=== PATIENT | female | born 1980 | race Caucasian/White ===

== ENCOUNTER 2018-11-22 05:54 | Day surgery (SDC) | payer OTHER ==
[~2018-11-22] VITALS: Ht 157.5 cm; Wt 66.2 kg
[2018-11-22 06:32] LABS: URINE PREG TEST NEGATIVE (NEGATIVE)
[2018-11-22] MEDS ORDERED: ceFAZolin SOD 1 GM in D5W MINI-BAG PLUS 50 ML IV ONE (07:00)
[2018-11-22] MEDS ORDERED: LIDOCAINE 1% MDV 20ML VIAL SQ PRN (07:00)
[2018-11-22] MEDS ORDERED: LR 1,000 ML IV SCH ×3 (07:00→10:00)
[2018-11-22] MEDS ORDERED: BUPIVACAINE/EPIN 0.25% 30 ML VIAL As Ordered ONE (07:13)
[2018-11-22] MEDS ORDERED: fentaNYL 250 MCG/5 ML INJECTION (J3010) As Ordered ONE (07:22)
[2018-11-22] MEDS ORDERED: MIDAZOLAM INJ 2 MG/2 ML VIAL (J2250) As Ordered ONE (07:23)
[2018-11-22] MEDS ORDERED: ROCURONIUM BROMIDE 50 MG/5 ML VIAL As Ordered ONE ×2 (07:30→08:57)
[2018-11-22] MEDS ORDERED: PROPOFOL 200 MG/20 ML VIAL As Ordered ONE (07:30)
[2018-11-22] MEDS ORDERED: LIDOCAINE 2% INJ 100 MG/5 ML SDV (FOR ANES.) As Ordered ONE (07:30)
[2018-11-22] MEDS ORDERED: dexameTHASONE 4 MG/ML 1ML VIAL (J1100) As Ordered ONE (07:48)
[2018-11-22] MEDS ORDERED: PHENYLephrine HCL 500 MCG/5 ML (100MCG/ML) SYRINGE (J2370) As Ordered ONE (07:48)
[2018-11-22] MEDS ORDERED: HYDROmorphone HCL 2 MG/ML 1ML VIAL (J1170) As Ordered ONE (08:09)
[2018-11-22] MEDS ORDERED: NEOSTIGMINE 10 MG/10 ML VIAL (J2710) As Ordered ONE (08:09)
[2018-11-22] MEDS ORDERED: GLYCOPYRROLATE INJ 0.2 MG/ML 2 ML VIAL As Ordered ONE (08:09)
[2018-11-22] MEDS ORDERED: ONDANSETRON 4MG/2ML VIAL (J2405) As Ordered ONE (08:26)
[2018-11-22] MEDS ORDERED: KETOROLAC 60 MG/2 ML VIAL (J1885) As Ordered ONE (08:27)
[2018-11-22] MEDS ORDERED: ePHEDrine SULFATE 25 MG/5 ML(5MG/ML) SYRINGE As Ordered ONE (08:43)
[2018-11-22] MEDS ORDERED: PERCOCET 5MG/325MG TAB PO PRN (10:00)
[2018-11-22] MEDS ORDERED: NORCO, ANEXSIA 5/325MG TABLET (HYDROcodone/ACETAMINOPHEN) PO PRN (10:00)
[2018-11-22] MEDS ORDERED: fentaNYL 100 MCG/2 ML INJECTION (J3010) IV PRN (10:00)
[2018-11-22] MEDS ORDERED: ONDANSETRON 4MG/2ML VIAL (J2405) IV PRN ×2 (10:00)
[2018-11-22] MEDS ORDERED: HYDROMORPHONE HCL 0.5 MG/ 0.5 ML SYRINGE (J1170 PER 1) IV PRN (10:00)
[2018-11-22] MEDS ORDERED: MEPERIDINE INJ 25 MG/ML VIAL (J2175) As Ordered ONE (10:03)
[2018-11-22] MEDS: MEPERIDINE INJ 25 MG/ML VIAL (J2175) IV PRN ×2 (10:05→10:10)
--- NOTE | 2018-11-22 10:12 | RO ---
DATE OF PROCEDURE: 11/22/2018 PREOPERATIVE DIAGNOSES: 1. Left inguinal hernia. 2. Umbilical hernia. POSTOPERATIVE DIAGNOSES: 1. Bilateral inguinal hernia (direct). 2. Umbilical hernia. PROCEDURE: 1. Robotic-assisted laparoscopic bilateral inguinal hernia repair with ProGrip mesh. 2. Umbilical hernia repair. SURGEON: Edmund Rodriguez MD APPLICATIONS ENGINEERING MANAGER: Racheal Bobby NP (Provided assistance with umbilical hernia closure, mesh placement, trocar exchange and abdominal wall closure.) ANESTHESIA: General endotracheal anesthesia. ESTIMATED BLOOD LOSS (EBL): Minimal. FLUIDS: Crystalloid. DISPOSITION: The patient was taken to recovery room awake, alert and hemodynamic stable. DESCRIPTION OF PROCEDURE: The patient was taken operating room and was given general anesthesia. After adequate anesthesia and preoperative antibiotics were given, the patient was prepped and draped in usual sterile fashion. Local lidocaine mixed with epinephrine was infiltrated into the periumbilical area and a periumbilical incision was made with skin knife. Electrocautery was used cut through dermis, underlying subcutaneous tissue and the umbilical hernia was transected at the base and it revealed a 7-8 mm umbilical hernia. I transected this at the base and gained access to the peritoneum and a 5 mm trocar was placed at the umbilicus so I put in the lateral 8 mm trocars under direct visualization after the abdomen was insufflated with 15 mm of pressure and the camera port was replaced at the umbilicus. The patient was placed in steep Trendelenburg position and the camera was docked. It was obvious at this time that there was a left inguinal hernia. However, there was a very small but visible and reducible right inguinal hernia on palpation to the abdominal wall. Thus, at this point, it was planned for a bilateral inguinal hernia repair. The peritoneum was taken down on the left-hand side. The peritoneum was mobilized using monopolar cut scissors as well as blunt dissection all the way down along the epigastric and down to the direct area where it was mobilized out of the hernia site, off the Doyle's ligament in this area quite nicely. After adequate mobilization of tissue in this area and off Doyle's ligament, off the vessels and off the round ligament, the right side was dissected. The peritoneum was taken down with monopolar cut scissors and blunt dissection as well as sharp dissection was used to mobilize the peritoneum in this area after it was adequately mobilized off the Doyle's ligament and the direct hernia was reduced and dissection then off the round ligament as well as the epigastric vessels and the peritoneum was nicely mobilized. A ProGrip mesh was placed in the preperitoneal space and pressed into position on the right-hand side after cutting to the appropriate size. Next, the peritoneum was closed over the top of this with a running V-Loc suture and the left inguinal area was closed with a V-Loc after a mesh was placed in the appropriate position as well covering the direct component, indirect component and the vessels in this area. Once the peritoneum was closed on this side, all trocars removed under direct visualization. The trocars were removed and next the lateral ports were closed with #4-0 Vicryl in the skin layer and the umbilical hernia then was closed with two [id number] #0 Ethibond sutures. The skin was closed with multiple #4-0 Vicryl, and Steri-Strips and a dry sterile dressing were placed on the lateral incisions and Dermabond on the umbilicus. The patient was awakened, extubated, brought to the recovery room awake, alert and hemodynamic stable.
[2018-11-22 13:15] VITALS: BP 118/64
[2018-11-22] MEDS ORDERED: KETOROLAC 30 MG/ML VIAL (J1885) IV SCH (16:00)
== END 2018-11-22 13:25 | disposition home or self-care (01) ==
LOC: M SDC 05:54
PROVIDERS: ATTEND Surgery
DX: K40.00 Bilateral inguinal hernia, with obstruction, without gangrene, not specified as recurrent (principal); K42.9 Umbilical hernia without obstruction or gangrene
CPT/HCPCS: 49585; 49650; 84703; C1781; J0690; J1100; J1170; J1885; J2175; J2250; J2370; J2405; J2710; J3010

== ENCOUNTER → 2019-09-24 | Outpatient (CLI) | payer OTHER ==
--- NOTE | 2019-09-24 14:45 | REP ---
Clinical: well-being Comparison: None . Findings: Examination demonstrates a single live intrauterine in transverse (head to maternal left) presentation. motion is identified by technologist. Placenta is noted left anterior and grade I I I without evidence for placenta previa or abruption. Amniotic fluid volume is normal. Cervix measures 3.7 cm in length and appears closed. Nuchal cord cannot be excluded. Gestational age by LMP 34 weeks 5 days with DANISH 10/31/2019 . FHR equals 136 beats per minute. Biophysical profile score: 8/8 Amniotic fluid index: 16.0 cm (8.0 - 24.9) Umbilical cord SD ratio: 3.12 Impression: Single live intrauterine in transverse lie. Biophysical profile score and amniotic fluid volume are normal. Umbilical cord SD ratio very minimally elevated. Electronically Signed by Parveen Glasgow MD 09/24/2019 02:36 P
== END ==
LOC: M RAD 13:23
PROVIDERS: ATTEND Obstetrics & Gynecology
DX: Z3A.34 34 weeks gestation of pregnancy (principal); O09.511 Supervision of elderly primigravida, first trimester

== ENCOUNTER 2019-11-02 08:14 | Inpatient (IN) | payer OTHER ==
[2019-11-02] VITALS (30 sets, daily range): BP systolic 104–147; BP diastolic 57–92
[~2019-11-02] VITALS: Ht 162.6 cm; Wt 82.1 kg
[2019-11-02] MEDS ORDERED: PRENTAB9 PO (08:34)
[2019-11-02] MEDS ORDERED: miSOPROStol 50 MCG 1/2 TAB (S0191) PO ONE (09:30)
[2019-11-02] MEDS ORDERED: LR 1,000 ML IV ONE (09:30)
[2019-11-02 09:41] LABS: HEMATOCRIT 40.4 % (36.0-47.0); HEMOGLOBIN 13.2 g/dl (12.0-15.5); MEAN CORPUSCULAR HEMOGLOBIN 30.5 pg (27.0-33.0); MEAN CORPUSCULAR HGB CONC 32.7 g/dl (32.0-36.5); MEAN CORPUSCULAR VOLUME 93.3 fl (80.0-96.0); PLATELET COUNT, AUTOMATED 164 10^3/uL (150-450); RED BLOOD COUNT 4.33 10^6/uL (4.00-5.40); WHITE BLOOD COUNT 9.7 10^3/uL (4.0-10.0)
[2019-11-02 12:01] LABS: GLUCOSE,RANDOM 99 MG/DL (LESS THAN 200)
[2019-11-02] MEDS ORDERED: OXYTOCIN DRIP 30 UNITS in IV 1 EA IV SCH (14:30)
[2019-11-02] MEDS: LR 1,000 ML IV SCH ×2 (14:41→18:48)
--- NOTE | 2019-11-02 16:45 | HPE ---
DATE OF ADMISSION: 11/02/2019 HISTORY: A 39-year-old 3, para 2, last menstrual period (LMP) 01/24/2019 estimated date of confinement (EDC) 10/31/2019, at 40 and 2 weeks of gestation for induction of labor because of an gestational diabetes mellitus 1 (GDM1) and advanced maternal age (AMA) RISK FACTORS: AMA, GDM 1 and postdates PAST HISTORY: 1. 2008: At 40 and 3, spontaneous vaginal delivery, 7 pounds 11 ounces. No issues. 2. 2011: At 39 and 4, spontaneous vaginal delivery, 7 pounds 15 ounces. No issues. LABORATORIES: O positive. HIV negative. Hepatitis negative. Rapid plasma reagin (RPR) negative. Rubella immune. Varicella immune. Pap normal. Urine negative. Gonorrhea and chlamydia are negative. One hour glucose was 193. Three hour GTT fasting 111, 1- hour 219. 2-hour 214, 3-hour 167. The patient was subsequently started on insulin; however, after doing her blood sugars on a routine basis and monitoring and diet, she became diet controlled and was off the insulin. She has had appropriate growth scans, non-stress tests (NSTs), amniotic fluid index (BRADLEY). Her quad screen was negative and CF was negative. Blood pressure is 122/71, respirations 16, pulse 99, temperature 98.2. On physical examination, no distress. Symphysis fundus height is 40, vertex presenting. PELVIC EXAMINATION; No vaginal loss or bleeding. Cervix is closed, thick posterior, presenting part is vertex, but is high. The rest of the examination unremarkable. Category one strip. Normocephalic, atraumatic. NECK: Full range of motion. Pupils equal and reactive to light. Distal pulses are symmetric. No evidence of deep venous thrombosis (DVT), pulmonary embolism (PE) or superficial phlebitis. Chest is clear bilaterally to bases. No wheezes or rhonchi. No costovertebral angle (CVA) tenderness. Vertex presenting. Four quadrant bowel sounds. Appropriate symphysis fundus height. She has no rashes, lesions or pruritus. No arthralgias, myalgias. No complaint of joint pain. No complaint of cough, wheeze, shortness of breath or dyspnea on exertion. No bleeding. No bruising. Neurologically complete. No frequency. No urgency. No nausea, vomiting, diarrhea or constipation. No heat or cold issues. She does have the diabetic issues in that she has failed three out of three 3-hour tests and is monitoring blood sugars. She has had no abnormal Pap smears. No sexually transmitted diseases (STDs). PAST MEDICAL HISTORY: Unremarkable. PAST SURGICAL HISTORY: Noncontributory. FAMILY HISTORY: Noncontributory. She does not smoke, drink or abuse drugs and there is no domestic violence. We discussed the consent for induction of labor and vaginal delivery, which is delivery through the vagina with possible use of forceps or vacuum if needed for maternal or indications. Forceps or vacuum devices can assist with vaginal delivery when normal pushing efforts cannot achieve delivery on their own or when delivery is needed in an emergency for baby's well-being. Medications may be required to induce or augment labor in order to achieve vaginal delivery. Episiotomy may be required to help baby deliver vaginally. You may also require repair of any lacerations or tears of the vagina or vulva that are caused by vaginal delivery. In some cases, emergencies can arise, then emergency section is required. There is no time to sign consent forms; however, the practitioner will discuss the risks and benefits and the reason for the emergency section, which is delivery through your abdomen when it is safer for the baby and for the mother to do that approach rather than continue on with labor, and it is only performed for clinically indicated conditions. Vaginal delivery risks include, but are not limited to bleeding, infection, injury to the vagina, pelvic structures, injury to baby, damage to the uterus, reaction to anesthesia, uterine rupture and risk of hysterectomy for life-threatening bleeding situations. Medications used to induce or augment labor may possibly increase risk of section, hysterectomy, hemorrhage, tachysystole, uterine rupture. There is also risks of forceps or vacuum delivery which include the perineal and vaginal lacerations, risk of urinary and bowel incontinence. Risk of injury to baby are bruising, scratches, hematomas of the head and intracranial bleed. The patient expressed understanding of same. A 40-minute discussion. All questions were answered. We are going to hydrate the patient, use misoprostol by mouth in order to initiate the process. We will reevaluate her in four hours.
[2019-11-03] VITALS (9 sets, daily range): BP systolic 120–151; BP diastolic 60–88
[2019-11-03 03:27] LABS: CORD GAS ABE A -4.3; CORD GAS ABE V -4.9; CORD GAS HCO3 A 25.3 MEQ/L; CORD GAS HCO3 V 20.9 MEQ/L; CORD GAS O2 SAT A 19.5 %; CORD GAS O2 SAT V 71.6 %; CORD GAS PCO2 V 41.4 mmHg; CORD GAS PH A 7.202 UNITS; CORD GAS PH V 7.321 UNITS; CORD GAS PO2 A 15.2 mmHg; CORD GAS SBC V 19.8 MEQ/L; CORD GAS TCO2 A 27.4 MEQ/L; CORD GAS TCO2 V 22.2 MEQ/L
[2019-11-03] MEDS: OXYTOCIN DRIP 30 UNITS in IV 1 EA IV SCH ×3 (03:41→11:05)
[2019-11-03] MEDS ORDERED: DOCUSATE SODIUM 100 MG CAP PO PRN (03:45)
[2019-11-03] MEDS ORDERED: DIBUCAINE 1% OINTMENT 30GM TOP PRN (03:45)
[2019-11-03] MEDS ORDERED: OXYTOCIN INJ 10 UNITS/ML VIAL (J2590) IV ONE (03:45)
[2019-11-03] MEDS ORDERED: ACETAMINOPHEN 500 MG TAB PO PRN (03:45)
[2019-11-03] MEDS ORDERED: ACETAMINOPHEN TAB 650MG DOSE (2X325MG) PO PRN (03:45)
[2019-11-03] MEDS ORDERED: MEASLES,MUMPS,RUBELLA VACCINE INJ (MMR-II) (90707) SC SCH (03:45)
[2019-11-03] MEDS ORDERED: METHYLERGONOVINE MALEATE 0.2 MG TAB PO PRN (03:45)
[2019-11-03] MEDS ORDERED: ANUSOL HC CREAM 30GM TOP PRN (03:45)
[2019-11-03] MEDS ORDERED: IBUPROFEN 600 MG TAB PO PRN (03:45)
[2019-11-03] MEDS ORDERED: MOM 30ML SUSPENSION UDC PO PRN (03:45)
[2019-11-03] MEDS ORDERED: IBUPROFEN 800 MG TAB PO PRN (03:45)
[2019-11-03] MEDS ORDERED: RHOGAM 300 MCG (1500 IU) INJ (J2790) IM SCH (03:45)
[2019-11-03] MEDS ORDERED: OXYTOCIN INJ 10 UNITS/ML VIAL (J2590) As Ordered ONE (05:18)
[2019-11-03] MEDS: PRENATAL VITAMINS CHEWABLE TABLET PO SCH (09:00)
--- NOTE | 2019-11-03 11:21 | IPN ---
DATE: 11/02/2019 This lady is a 39-year-old, 3, para 2, admitted for induction of labor because of AMA and GDM 1. Her lab work reveals that on her CBC her hemoglobin is 13.2, hematocrit 40.4 and platelets 164. Her chemistry reveals her blood sugar random is 99. She had one dose of Cytotec. She developed some contractions. She was having some intermittent contractions anywhere from 1-3 minutes, some were 4-5 minutes, moderate intensity, but no evidence of pelvic pressure or descent. The heart category one strip at the present time. Reevaluation of her cervix indicates there is basically no change. Head has not come down to -3 at the present time. It is definitely vertex. Very posterior soft cervix. Our plan of management at the present time is to initiate some Pitocin to see if we can enhance the contractions and when available do artificial rupture of membranes (AROM) anticipating active progress. The patient has expressed understanding of the plan of care. 20-minute discussion. All questions were answered.
--- NOTE | 2019-11-03 13:28 | IPN ---
DATE: 11/02/2019 This is a 39-year-old, 3, para 2, admitted for induction of labor who is an AGDM 1, presently her Pitocin is running at 6munits per minute. Contractions are moderate intensity. Category one strip. Pelvic examination very posterior, 4 cm, still about 70% effaced. We were going to do an artificial rupture of membrane (AROM), however, she had and spontaneous rupture of membrane (SROM) of clear liquid, moderate amount, vertex presenting, occiput posterior. Her resting blood pressure is 127/77, pulse is 100, respirations are 20 and temperature is 98.0. In summary, we have a post term gestation with adequate contractions with SROM of clear liquid. Anticipate progress from now. [facility]
--- NOTE | 2019-11-03 13:56 | DN ---
DATE: 11/02/2019 39-year-old 3, para 2, admitted for induction of labor at 40+ weeks of gestation, advanced maternal age and ADGM1. She had Cytotec times one augmented with Pitocin. She had a spontaneous rupture of membranes. Had a precipitous delivery of a live male infant weighing 7 pounds 13 ounces, 3550 grams. scores of 9 and 9 at 1 and 5 minutes respectively. Terminal meconium at delivery. Arterial pH 7.20, base excess -4.3, venous pH 7.32, base excess -4.9. The uterus contracted well down under Pitocin. The placenta delivered spontaneously thereafter. Three-vessel cord. Membranes and tissues intact. Evaluation of the vagina, anterior, posterior and lateral otero were intact. Sphincter was tight. Moderate amount of hemorrhoids were noted. In summary, we have a term gestation delivered a live male . No abrasions, tears or lacerations. Uterus was continued well contracted under Pitocin. Estimated blood loss less than 50 mL.
[2019-11-04 05:43] VITALS: BP 133/72
[2019-11-04 07:09] LABS: HEMATOCRIT 41.7 % (36.0-47.0); HEMOGLOBIN 13.1 g/dl (12.0-15.5); MEAN CORPUSCULAR HEMOGLOBIN 30.3 pg (27.0-33.0); MEAN CORPUSCULAR HGB CONC 31.4 g/dl (32.0-36.5); MEAN CORPUSCULAR VOLUME 96.3 fl (80.0-96.0); PLATELET COUNT, AUTOMATED 174 10^3/uL (150-450); RED BLOOD COUNT 4.33 10^6/uL (4.00-5.40); WHITE BLOOD COUNT 10.4 10^3/uL (4.0-10.0)
--- NOTE | 2019-11-04 09:47 | IPNPDOC ---
Progress Note Date of Service: Nov 04, 2019 Day#: 1 Progress Note PPD 1 SUBJECT: Aggie is a 39yo [id number] s/p uncomplicated after undergoing IOL at 40+wk for AMA with A1GDM, doing well day #1. is in the NICU for blood sugar regulation. She has been ambulating, voiding spontaneously without issue and tolerating regular diet. Breast feeding without issue. Reports lochia is like a normal period. Denies f/c/n/v/CP/SOB. She would like to go home today and come back to visit baby in the NICU freely. OBJECTIVE: VITAL SIGNS: Within normal limits, afebrile. A&O x3, WDWN, conversant, sitting up in bed eating Abdomen: Fundus firm at U-2. Soft, NTTP. Extermities: no pain with palpation of calves ASSESSMENT: Aggie is a 39yo [id number] s/p uncomplicated after undergoing IOL at 40+wk for AMA with A1GDM, doing well day #1. Vitals within normal limits, afebrile, hemodynamically stable with no evidence of infection. PLAN: 1. Discharge to home today. 2. Tylenol and Motrin for pain. 3. Encouraged breast feeding and ambulation. 4. Desires BTL which we will discuss further at PP visit 5. Routine PP visit in 6 weeks in clinic. 6. Discussed return precautions at length. 7. Vaginal rest 6 weeks and no heavy lifting Dr. Serenity Pierre MD VS, I&O, 24H, Fishbone Vital Signs/I&O Vital Signs Date Time Temp Pulse Resp B/P (MAP) Pulse Ox O2 Delivery O2 Flow Rate FiO2 11/04/19 05:43 98.1 72 18 133/72 (92) 11/03/19 18:00 99 Room Air I&O- Last 24 Hours up to 6 AM 11/04/19 06:00 Output Total 400 ml Balance -400 ml Laboratory Data 24H LABS Laboratory Tests 2 11/04/19 06:39: Nucleated Red Blood Cells % (auto) 0.0 CBC/BMP Laboratory Tests 11/04/19 06:39 Serenity Pierre MD Nov 04, 2019 09:47
[2019-11-04] MEDS ORDERED: ACET-683 PO (09:48)
[2019-11-04] MEDS ORDERED: IBUP80TA PO (09:48)
--- NOTE | 2019-11-04 09:51 | DS.PDOC ---
Discharge Summary General Date of Admission Nov 02, 2019 at 08:14 Date of Discharge Nov 04, 2019 Attending Physician: Serenity Pierre MD Discharge Summary PROCEDURES PERFORMED DURING STAY: spontaneous vaginal delivery, uncomplicated ADMITTING DIAGNOSES: 1. Induction of labor at 40+wk for advanced maternal age with A1GDM DISCHARGE DIAGNOSES: 1. Induction of labor at 40+wk for advanced maternal age with A1GDM 2. Delivered COMPLICATIONS/CHIEF COMPLAINT: Induction. HISTORY OF PRESENT ILLNESS/HOSPITAL COURSE: Aggie is a 39yo [id number] s/p uncomplicated after undergoing IOL at 40+wk for AMA with A1GDM, doing well day #1. She has had a benign course. She desires discharge home (baby still in NICU for blood sugar regulation). At time of discharge, vitals were within normal limits, she was afebrile, hemodynamically stable with no evidence of infection. DISCHARGE MEDICATIONS: Please see below. ALLERGIES: Please see below. PHYSICAL EXAMINATION ON DISCHARGE: VITAL SIGNS: Please see below. VITAL SIGNS: Within normal limits, afebrile. A&O x3, WDWN, conversant, sitting up in bed eating Abdomen: Fundus firm at U-2. Soft, NTTP. Extermities: no pain with palpation of calves LABORATORY DATA: Please see below. DIET: regular DISPOSITION: home DISCHARGE PLAN/INSTRUCTIONS: 1. Discharge to home today. 2. Tylenol and Motrin for pain. 3. Encouraged breast feeding and ambulation. 4. Desires BTL which we will discuss further at PP visit 5. Routine PP visit in 6 weeks in clinic. 6. Discussed return precautions at length. 7. Vaginal rest 6 weeks and no heavy lifting DISCHARGE CONDITION: Stable TIME SPENT ON DISCHARGE: Greater than [address] Serenity Pierre MD Vital Signs/I&Os Vital Signs Date Time Temp Pulse Resp B/P (MAP) Pulse Ox O2 Delivery O2 Flow Rate FiO2 11/04/19 05:43 98.1 72 18 133/72 (92) 11/03/19 18:00 99 Room Air I&O- Last 24 Hours up to 6 AM0 11/04/19 06:00 Output Total 400 ml Balance -400 ml Laboratory Data Labs 24H Laboratory Tests 2 11/04/19 06:39: Nucleated Red Blood Cells % (auto) 0.0 CBC/BMP Laboratory Tests 11/04/19 06:39 Discharge Medications Scheduled No.137/Iron/Folic Acd ( Vitamin Tablet) 1 Each Tablet, 1 TAB PO DAILY, (Reported) Scheduled PRN Acetaminophen (Acetaminophen) 500 Mg Tablet, 1,000 MG PO Q6HP PRN for PAIN LEVEL 6-10 Ibuprofen (Ibuprofen) 800 Mg Tablet, 800 MG PO Q8HP PRN for PAIN LEVEL 6-10 Allergies Coded Allergies: codeine (Verified Allergy, Intermediate, 11/02/19) latex (Verified Allergy, Unknown, HIVES, 11/02/19) Serenity Pierre MD Nov 04, 2019 09:51
[2019-11-04] MEDS: PRENATAL VITAMINS CHEWABLE TABLET PO SCH (10:58)
--- NOTE | 2019-11-06 15:20 | IPN ---
DATE OF SERVICE: 11/03/2019 This patient requested circumcision of her male . After discussing risks, benefits of circumcision, the medical and nonmedical indications, penile block and aftercare expressed understanding of penile block, aftercare, signed the consent form. All questions were answered. 20-minute discussion. We await clearance by the magazine journalist.
== END 2019-11-04 14:45 | disposition home or self-care (01) | DRG 807 ==
LOC: M LDI 08:14 → M OBS 11-03 07:47
PROVIDERS: ADMIT Obstetrics & Gynecology; ATTEND Obstetrics & Gynecology
PROC: 3E0P7GC Introduction of Other Therapeutic Substance into Female Reproductive, Via Natural or Artificial Opening (ICD-10-PCS; 2019-11-02)
PROC: 10E0XZZ Delivery of Products of Conception, External Approach (ICD-10-PCS; principal; 2019-11-03)
DX: O24.410 Gestational diabetes mellitus in pregnancy, diet controlled (principal); Z37.0 Single live birth; Z3A.40 40 weeks gestation of pregnancy